=== PATIENT | male | born 1965 | race Two or more races ===

== ENCOUNTER 2018-01-13 13:27 | Day surgery (SDC) | payer OTHER ==
[2018-01-10 10:36] VITALS: BMI 24.2
[2018-01-13 13:52] VITALS: TEMP 98
[2018-01-13] MEDS ORDERED: MIDAZOLAM HCL 2 MG/2 ML SINGLE DOSE VIAL ONE (15:43)
[2018-01-13] MEDS ORDERED: LIDOCAINE HCL/PF 2% SDV 5ML VIAL ONE (15:57)
--- NOTE | 2018-01-13 16:02 | OP ---
Operative Note - Note: Operative Date: 01/13/18 Pre-Operative Diagnosis: Right kidney stone Operation: Right ESWL Findings: 5 mm Upper and 4 mm mid pole R kidney Post-Operative Diagnosis: Same as Pre-op Surgeon: Marquise Valenzuela Anesthesia: Fractional
[2018-01-13 17:31] VITALS: BP 148/76; PULSE 71
--- NOTE | 2018-01-14 08:53 | OP ---
DATE OF OPERATION: 01/13/2018 PREOPERATIVE DIAGNOSIS: Right renal stones. POSTOPERATIVE DIAGNOSIS: Right renal stones. PROCEDURE: Right extracorporeal shock wave lithotripsy. ATTENDING: Golden Rivera MD ANESTHESIA: Fractional. OPERATION: The patient was brought into the operating room, placed in supine position on the operating room table. Ultrasonography and fluoroscopy were performed. Two stones were identified in the right kidney, a 5-mm upper-pole stone and a 4-mm mid-pole stone. Fraction anesthesia was then administered. Preoperative antibiotics were given. Then, 1250 impulses were administered to each stone at 20 joules of power. Excellent fragmentation was noted under real-time ultrasonography and fluoroscopy. No complications were noted. The patient tolerated the procedure very well. GOLDEN RIVERA M.D. [id number]
== END 2018-01-13 17:31 | disposition home or self-care (01) ==
LOC: JASU-SURG 13:27
PROVIDERS: ATTEND Urology
PROC: 0TF3XZZ Fragmentation in Right Kidney Pelvis, External Approach (ICD-10-PCS; principal; 2018-01-13 15:30)
DX: N20.0 Calculus of kidney (principal)

== ENCOUNTER 2018-02-10 08:08 | Day surgery (SDC) | payer OTHER ==
[2018-02-07 12:22] VITALS: BMI 26.6
--- NOTE | 2018-02-10 11:45 | OP ---
Operative Note - Note: Operative Date: 02/10/18 Pre-Operative Diagnosis: Left kidney stone Operation: Left ESWL Findings: 7 mm mid pole left stone Surgeon: Marquise Valenzuela Anesthesia: Fractional Operative Report Dictated: Yes
[2018-02-10] MEDS ORDERED: ONDANSETRON 4 MG/2 ML VIAL IVPUSH PRN (12:13)
[2018-02-10] MEDS ORDERED: PROMETHAZINE HCL 25 MG/1 ML VIAL IVPUSH PRN (12:13)
[2018-02-10] MEDS ORDERED: oxyCODONE HCL 5 MG TABLET PO PRN (12:13)
[2018-02-10 12:14] VITALS: TEMP 97.8
[2018-02-10] MEDS ORDERED: LACTATED RINGERS SOLUTION 1,000 ML IV SCH (12:15)
[2018-02-10 14:07] VITALS: BP 118/76; PULSE 64
--- NOTE | 2018-02-10 21:17 | OP ---
DATE OF OPERATION: 02/10/2018 PREOPERATIVE DIAGNOSIS: Left renal stone. POSTOPERATIVE DIAGNOSIS: Left renal stone. PROCEDURE: Left extracorporeal shock wave lithotripsy. ATTENDING: Marquise Dumont MD ANESTHESIA: Fractional. DESCRIPTION OF OPERATION: The patient was brought in the operating room, placed in a supine position on the operating room table. Ultrasonography and fluoroscopy were performed. A left 7-mm mid-pole stone was identified. At this point, fractional anesthesia and antibiotics were administered preoperatively. Extracorporeal shock wave lithotripsy was then performed; 3000 impulses at 20 joules of power were administered to the stone with excellent fragmentation noted. No complications were noted. The disposition of the patient was to the recovery room. Kassandra [id number]
== END 2018-02-10 13:35 | disposition home or self-care (01) ==
LOC: JASU-SURG 08:08
PROVIDERS: ATTEND Urology
PROC: 0TF4XZZ Fragmentation in Left Kidney Pelvis, External Approach (ICD-10-PCS; principal; 2018-02-10 10:15)
DX: N20.0 Calculus of kidney (principal)
CPT/HCPCS: 94760

== ENCOUNTER 2019-08-24 08:45 | Day surgery (SDC) | payer OTHER ==
[2019-08-21 14:54] VITALS: BMI 27.9
[~2019-08-24 08:45] MED LIST: ACETAMINOPHEN 325 MG TABLET (FP) PO PRN; ONDANSETRON 4 MG/2 ML VIAL IVPUSH PRN; oxyCODONE HCL 5 MG TABLET PO PRN
[2019-08-24 09:06] VITALS: TEMP 98.1
[2019-08-24] MEDS ORDERED: PROPOFOL 20 ML ONE (10:33)
[2019-08-24] MEDS ORDERED: MIDAZOLAM HCL 2 MG/2 ML SINGLE DOSE VIAL ONE (10:34)
[2019-08-24] MEDS ORDERED: KETOROLAC TROMETHAMINE 30 MG/1 ML VIAL ONE ×2 (10:58→11:09)
[2019-08-24] MEDS ORDERED: DEXAMETHASONE SOD PHOSPHATE 4 MG/1 ML VIAL ONE (11:09)
--- NOTE | 2019-08-24 11:24 | OP ---
Operative Note - Note: Operative Date: 08/24/19 Pre-Operative Diagnosis: Right renal stone Operation: Right ESWL Findings: 6 mm upper pole Right renal stone Post-Operative Diagnosis: Same as Pre-op Surgeon: Marquise Valenzuela Anesthesia: Fractional Estimated Blood Loss (mls): 0 Drains, Volume Out (mls): 0 Operative Report Dictated: Yes
[2019-08-24 11:58] VITALS: PULSE 66
[2019-08-24 12:41] VITALS: BP 138/86
--- NOTE | 2019-08-25 10:23 | OP ---
DATE OF OPERATION: 08/24/2019 PREOPERATIVE DIAGNOSIS: Right renal stone. POSTOPERATIVE DIAGNOSIS: Right renal stone. PROCEDURE: Right extracorporeal shock wave lithotripsy. ATTENDING: Golden Rivera MD ANESTHESIA: Fractional. OPERATION: The patient was brought in the operating room and placed in the supine position on the operating room table. Ultrasonography and fluoroscopy were performed. A 6 mm right upper pole stone was identified. Shock wave lithotripsy was started after anesthesia and preoperative antibiotics were administered; 2500 impulses at 17 joules of power were administered to the stone with excellent fragmentation of the stone noted under real-time ultrasonography and fluoroscopy. There were no complications noted. The patient tolerated the procedure very well. GOLDEN RIVERA M.D. [id number]
== END 2019-08-24 12:30 | disposition home or self-care (01) ==
LOC: JASU-SURG 08:45
PROVIDERS: ATTEND Urology
PROC: 0TF3XZZ Fragmentation in Right Kidney Pelvis, External Approach (ICD-10-PCS; principal; 2019-08-24 10:15)
DX: N20.0 Calculus of kidney (principal)

== ENCOUNTER 2022-09-05 20:10 | Emergency (ER) | payer OTHER ==
[2022-09-05 20:20] VITALS: BP 159/94; PULSE 65; RESP 20; TEMP 98.2; BMI 28.8
[2022-09-05] MEDS ORDERED: MECLIZINE HCL 12.5 MG TABLET PO ONE (22:13)
[2022-09-05] MEDS ORDERED: MECLIZINE HCL 12.5 MG TABLET ONE (22:38)
[2022-09-05 22:54] LABS: BASO % 0.9 % (0-2.0); EOS % 3.3 % (0-4.5); HEMATOCRIT 43.1 % (35.4-49); HEMOGLOBIN 14.8 GM/dL (11.7-16.9); LYMPH % 53.2 % (8-40); MCH 30.2 pg (25.7-33.7); MCHC 34.4 g/dl (32.0-35.9); MEAN CELL VOLUME 87.9 fl (80-96); MEAN PLT VOLUME 9.3 fl (7.5-11.1); MONO % 8.8 % (3.8-10.2); NEUT % 33.8 % (42.8-82.8); PLATELET COUNT 152 10^3/uL (134-434); RDW 13.6 % (11.9-15.9); WHITE BLOOD COUNT 4.7 K/mm3 (4.0-10.0)
[2022-09-06 00:24] LABS: CREATININE 1.1 mg/dL (0.55-1.3)
[2022-09-06 00:26] LABS: BILIRUBIN,TOTAL 0.6 mg/dL (0.2-1); TOT PROT 7.5 g/dl (6.4-8.2)
[2022-09-06 00:28] LABS: BLOOD UREA NITROGEN 8.8 mg/dL (7-18)
== END 2022-09-06 02:09 | disposition home or self-care (01) ==
LOC: JER 20:10
DX: R42 Dizziness and giddiness (principal)
CPT/HCPCS: 36415; 70450-TC; 71045-TC-FY; 80053; 84484; 85025; 93005; 93010; 99285-25

== ENCOUNTER 2023-10-11 22:14 | Emergency (ER) | payer OTHER ==
[2023-10-11 22:23] VITALS: TEMP 97.9; BMI 26.6
[2023-10-11] MEDS ORDERED: MAG HYDROX/AL HYDROX/SIMETH 30 ML UNIT-DOSE CUP PO ONE (23:21)
[2023-10-11] MEDS ORDERED: FAMOTIDINE 20 MG/50 ML IVPB 20 MG/50 ML MG IVPB ONE ×2 (23:21→23:27)
[2023-10-11] MEDS ORDERED: ACETAMINOPHEN 1000 MG/100 ML BAG IVPB ONE (23:22)
[2023-10-11] MEDS ORDERED: METOCLOPRAMIDE HCL INJECTION 10 MG/2 ML VIAL IVPUSH ONE (23:22)
[2023-10-11] MEDS ORDERED: METOCLOPRAMIDE HCL INJECTION 10 MG/2 ML VIAL ONE (23:27)
[2023-10-11] MEDS ORDERED: ACETAMINOPHEN INJECTION 100 ML IVPB ONE (23:27)
[2023-10-11] MEDS ORDERED: MAG HYDROX/AL HYDROX/SIMETH 30 ML UNIT-DOSE CUP ONE (23:27)
[2023-10-12 00:07] LABS: BASO % 0.3 % (0-2.0); HEMATOCRIT 45.6 % (35.4-49); HEMOGLOBIN 15.7 GM/dL (11.7-16.9); LYMPH % 19.6 % (8-40); MCH 29.8 pg (25.7-33.7); MCHC 34.4 g/dl (32.0-35.9); MEAN CELL VOLUME 86.7 fl (80-96); MEAN PLT VOLUME 9.3 fl (7.5-11.1); MONO % 4.4 % (3.8-10.2); NEUT % 74.7 % (42.8-82.8); PLATELET COUNT 178 10^3/uL (134-434); RBC 5.26 M/mm3 (4.00-5.60); RDW 13.6 % (11.9-15.9); WHITE BLOOD COUNT 5.9 K/mm3 (4.0-10.0)
[2023-10-12 00:14] LABS: INR 1.08 (0.83-1.09); PROTHROMBIN TIME (PATIENT) 12.5 SEC (9.7-13.0)
[2023-10-12 00:17] LABS: ACTIVATED PTT 37.9 SECONDS (25.2-36.5)
[2023-10-12 00:31] LABS: CALCIUM 9.2 mg/dL (8.5-10.1)
[2023-10-12 00:32] LABS: ALBUMIN 4.3 g/dl (3.4-5.0)
[2023-10-12 00:35] LABS: CREATININE 1.2 mg/dL (0.55-1.3)
[2023-10-12 00:36] LABS: TOT PROT 8.3 g/dl (6.4-8.2)
[2023-10-12 00:37] LABS: BILIRUBIN,TOTAL 0.4 mg/dL (0.2-1)
[2023-10-12] MEDS ORDERED: LOSARTAN POTASSIUM 50 MG TABLET PO ONE (00:51)
[2023-10-12] MEDS ORDERED: LOSARTAN POTASSIUM 50 MG TABLET ONE (00:56)
[2023-10-12 01:06] VITALS: BP 147/86; PULSE 82; RESP 16
[2023-10-12 01:28] LABS: PH,URINE 6.5 (5.0-8.0); URINE APPEARANCE CLEAR; URINE BILIRUBIN NEGATIVE (NEGATIVE); URINE COLOR YELLOW; URINE GLUCOSE (UA) NEGATIVE (NEGATIVE); URINE KETONE NEGATIVE (NEGATIVE); URINE LEUK ESTERASE NEGATIVE (NEGATIVE); URINE NITRITE NEGATIVE (NEGATIVE); URINE PROTEIN NEGATIVE (NEGATIVE); URINE UROBILINOGEN 0.2 mg/dL (0.2-1.0)
== END 2023-10-12 01:56 | disposition home or self-care (01) ==
LOC: JER 22:14
PROC: 3E033GC Introduction of Other Therapeutic Substance into Peripheral Vein, Percutaneous Approach (ICD-10-PCS; principal; 2023-10-11)
PROC: 3E033GC Introduction of Other Therapeutic Substance into Peripheral Vein, Percutaneous Approach (ICD-10-PCS; 2023-10-11)
PROC: 3E033NZ Introduction of Analgesics, Hypnotics, Sedatives into Peripheral Vein, Percutaneous Approach (ICD-10-PCS; 2023-10-11)
DX: R51.9 Headache, unspecified (principal); R10.13 Epigastric pain; R14.0 Abdominal distension (gaseous); I10 Essential (primary) hypertension; Z20.822 Contact with and (suspected) exposure to COVID-19
CPT/HCPCS: 0241U-QW; 36415; 71045-TC-FY; 80053; 81003; 84484; 85025; 85610; 85730; 87086; 93005; 93010; 99285-25